=== PATIENT | male | born 1980 | race Caucasian/White ===

== ENCOUNTER 2016-11-21 06:41 | Emergency (ER) | payer OTHER ==
[2016-11-21 09:26] LABS: HEMOGLOBIN 14.6 gm/dl (14.0-17.5); RED BLOOD COUNT 4.88 M/UL (4.20-5.50); WHITE BLOOD COUNT 11.5 K/UL (4.5-11.0)
[2016-11-21 09:58] LABS: BUN/CREATININE RATIO 13 (0-10)
== END 2016-11-21 11:40 | disposition short-term general hospital (02) ==
LOC: ER1 06:41
PROVIDERS: Physician Assistant Medical
DX: S02.19XA Other fracture of base of skull, initial encounter for closed fracture (principal); F17.210 Nicotine dependence, cigarettes, uncomplicated; V43.52XA Car driver injured in collision with other type car in traffic accident, initial encounter; Y93.89 Activity, other specified; Y92.410 Unspecified street and highway as the place of occurrence of the external cause
CPT/HCPCS: 36415; 70450; 71010; 72125; 73030; 80053; 80307; 81001; 85025; 87086; 96374; 96375; 99285; G0480; J2270; J2405; J7030